=== PATIENT | male | born 1970 | race Two or more races ===

== ENCOUNTER 2021-10-05 16:49 | Inpatient (IN) | payer OTHER ==
[2021-10-05 18:03] VITALS: BMI 26.9
[2021-10-05] MEDS ORDERED: MAGNESIUM CITRATE 300 ML BOTTLE PO PRN (20:17)
[2021-10-05] MEDS ORDERED: NICOTINE 10 MG CARTRIDGE (INHALER) IH PRN (20:17)
[2021-10-05] MEDS ORDERED: NALOXONE (NARCAN) HCL 4 MG/0.1 ML SPRAY NS PRN (20:17)
[2021-10-05] MEDS ORDERED: MENTHOL/PHENOL 1 EACH UD MM PRN (20:17)
[2021-10-05] MEDS ORDERED: P-EPHED 60MG/TRIPROLIDI 2.5MG TABLET PO PRN (20:17)
[2021-10-05] MEDS ORDERED: IBUPROFEN 400 MG TABLET (FP) PO PRN (20:17)
[2021-10-05] MEDS ORDERED: METHOCARBAMOL 500 MG TABLET PO PRN (20:17)
[2021-10-05] MEDS ORDERED: MAG HYDROX/AL HYDROX/SIMETH 30 ML UNIT-DOSE CUP PO PRN (20:17)
[2021-10-05] MEDS ORDERED: NALOXONE HCL 0.4 MG/ML VIAL IM PRN (20:17)
[2021-10-05] MEDS ORDERED: ACETAMINOPHEN 325 MG TABLET (FP) PO PRN ×2 (20:17)
[2021-10-05] MEDS ORDERED: BISMUTH SUBSALICYLATE 524 MG/30 ML PO PRN (20:17)
[2021-10-05] MEDS ORDERED: DICYCLOMINE HCL 10 MG CAPSULE PO PRN (20:17)
[2021-10-05] MEDS ORDERED: MAGNESIUM HYDROX 2400MG/30ML ORAL SUSPENSION 30 ML CUP PO PRN (20:17)
[2021-10-05] MEDS ORDERED: guaiFENesin 200 MG/10 ML 10 ML UNIT-DOSE CUPS PO PRN (20:17)
[2021-10-05] MEDS: THIAMINE HCL 100 MG TABLET (FP) PO SCH (22:21)
[2021-10-05] MEDS: MELATONIN 5 MG TABLETS PO SCH (22:21)
[2021-10-06] MEDS ORDERED: methaDONE HCL 40 MG DISPERSABLE TABLET PO SCH (10:00)
[2021-10-06] MEDS ORDERED: methaDONE HCL 10 MG TABLET ONE (12:08)
[2021-10-06] MEDS ORDERED: methaDONE HCL 40 MG DISPERSABLE TABLET ONE (12:09)
[2021-10-06] MEDS: PRENATAL VITAMINS W/ FOLIC ACID TABLET (FP) PO SCH (12:11)
[2021-10-06] MEDS ORDERED: methaDONE 80 MG, methaDONE 20 MG PO ONE (12:15)
[2021-10-06] MEDS: NICOTINE 14 MG/24 HOURS TOPICAL PATCH TD SCH (12:16)
[2021-10-06] MEDS: THIAMINE HCL 100 MG TABLET (FP) PO SCH (22:47)
[2021-10-06] MEDS: MELATONIN 5 MG TABLETS PO SCH (22:47)
[2021-10-07] MEDS ORDERED: methaDONE HCL 40 MG DISPERSABLE TABLET ONE (04:18)
[2021-10-07] MEDS ORDERED: methaDONE HCL 10 MG TABLET ONE (04:18)
[2021-10-07] MEDS: methaDONE 80 MG, methaDONE 20 MG PO SCH (06:01)
[2021-10-07] MEDS: NICOTINE 14 MG/24 HOURS TOPICAL PATCH TD SCH (11:31)
[2021-10-07] MEDS: PRENATAL VITAMINS W/ FOLIC ACID TABLET (FP) PO SCH (11:31)
[2021-10-07 14:52] LABS: HEMATOCRIT 33.9 % (35.4-49); HEMOGLOBIN 11.9 GM/dL (11.7-16.9); MEAN CELL VOLUME 85.7 fl (80-96); MEAN PLT VOLUME 9.9 fl (7.5-11.1); PLATELET COUNT 130 10^3/uL (134-434); RBC 3.95 M/mm3 (4.00-5.60); RDW 13.4 % (11.9-15.9); WHITE BLOOD COUNT 4.8 K/mm3 (4.0-10.0)
[2021-10-07 15:06] LABS: BLOOD UREA NITROGEN 7.2 mg/dL (7-18); CALCIUM 8.7 mg/dL (8.5-10.1)
[2021-10-07 15:10] LABS: CREATININE 0.9 mg/dL (0.55-1.3)
[2021-10-07 15:11] LABS: BILIRUBIN,TOTAL 0.4 mg/dL (0.2-1); TOT PROT 6.4 g/dl (6.4-8.2)
[2021-10-07] MEDS: THIAMINE HCL 100 MG TABLET (FP) PO SCH (21:39)
[2021-10-07] MEDS: MELATONIN 5 MG TABLETS PO SCH (21:41)
[2021-10-08] MEDS ORDERED: methaDONE HCL 10 MG TABLET ONE (04:27)
[2021-10-08] MEDS ORDERED: methaDONE HCL 40 MG DISPERSABLE TABLET ONE (04:27)
[2021-10-08] MEDS: methaDONE 80 MG, methaDONE 20 MG PO SCH (06:24)
[2021-10-08] MEDS: PRENATAL VITAMINS W/ FOLIC ACID TABLET (FP) PO SCH (10:46)
[2021-10-08] MEDS: amLODIPine BESYLATE 10 MG TABLET (FP) PO SCH (10:47)
[2021-10-08] MEDS: NICOTINE 14 MG/24 HOURS TOPICAL PATCH TD SCH (10:47)
[2021-10-08] MEDS: MELATONIN 5 MG TABLETS PO SCH (22:45)
[2021-10-08] MEDS: THIAMINE HCL 100 MG TABLET (FP) PO SCH (22:45)
[2021-10-09] MEDS ORDERED: methaDONE HCL 10 MG TABLET ONE (04:43)
[2021-10-09] MEDS ORDERED: methaDONE HCL 40 MG DISPERSABLE TABLET ONE (04:44)
[2021-10-09] MEDS: methaDONE 80 MG, methaDONE 20 MG PO SCH (05:52)
[2021-10-09] MEDS: PRENATAL VITAMINS W/ FOLIC ACID TABLET (FP) PO SCH (09:59)
[2021-10-09] MEDS: amLODIPine BESYLATE 10 MG TABLET (FP) PO SCH (09:59)
[2021-10-09] MEDS: NICOTINE 14 MG/24 HOURS TOPICAL PATCH TD SCH (09:59)
[2021-10-09 13:25] VITALS: BP 101/64; PULSE 87; TEMP 95
== END 2021-10-09 14:53 | disposition home or self-care (01) | DRG 773 ==
LOC: YASAS 16:49 → Y6N 20:54 → UNDOADMIN 20:54 → Y6N 20:55
PROVIDERS: ADMIT Allergy & Immunology; ATTEND Allergy & Immunology
PROC: HZ2ZZZZ Detoxification Services for Substance Abuse Treatment (ICD-10-PCS; principal; 2021-10-05)
DX: F10.230 Alcohol dependence with withdrawal, uncomplicated (principal); F11.20 Opioid dependence, uncomplicated; F14.20 Cocaine dependence, uncomplicated; F13.20 Sedative, hypnotic or anxiolytic dependence, uncomplicated; F17.210 Nicotine dependence, cigarettes, uncomplicated; F19.24 Other psychoactive substance dependence with psychoactive substance-induced mood disorder; I10 Essential (primary) hypertension; Z62.810 Personal history of physical and sexual abuse in childhood; Z86.16 Personal history of COVID-19; Z20.2 Contact with and (suspected) exposure to infections with a predominantly sexual mode of transmission; Z59.00 Homelessness unspecified
CPT/HCPCS: 36415; 80053; 82962; 85027; 86593; 86780; 87811; 93005; 93010; C9803; U0003; U0005

== ENCOUNTER 2021-12-06 14:39 | Inpatient (IN) | payer OTHER ==
[2021-12-06] MEDS ORDERED: MENTHOL/PHENOL 1 EACH UD MM PRN (16:58)
[2021-12-06] MEDS ORDERED: BISMUTH SUBSALICYLATE 524 MG/30 ML PO PRN (16:58)
[2021-12-06] MEDS ORDERED: ONDANSETRON *ODT* 4 MG TABLET SL PRN (16:58)
[2021-12-06] MEDS ORDERED: METHOCARBAMOL 500 MG TABLET PO PRN (16:58)
[2021-12-06] MEDS ORDERED: ACETAMINOPHEN 325 MG TABLET (FP) PO PRN ×2 (16:58)
[2021-12-06] MEDS ORDERED: NICOTINE POLACRILEX 2 MG GUM BUC PRN (16:58)
[2021-12-06] MEDS ORDERED: MAGNESIUM HYDROX 2400MG/30ML ORAL SUSPENSION 30 ML CUP PO PRN (16:58)
[2021-12-06] MEDS ORDERED: IBUPROFEN 400 MG TABLET (FP) PO PRN (16:58)
[2021-12-06] MEDS ORDERED: MAGNESIUM CITRATE 300 ML BOTTLE PO PRN (16:58)
[2021-12-06] MEDS ORDERED: MAG HYDROX/AL HYDROX/SIMETH 30 ML UNIT-DOSE CUP PO PRN (16:58)
[2021-12-06] MEDS ORDERED: diazePAM 5 MG TABLET PO PRN (17:00)
[2021-12-06 22:40] VITALS: BMI 26.4
[2021-12-06] MEDS: MELATONIN 5 MG TABLETS PO SCH (23:01)
[2021-12-06] MEDS: THIAMINE HCL 100 MG TABLET (FP) PO SCH (23:01)
[2021-12-07] MEDS ORDERED: chlordiazePOXIDE HCL 25 MG CAPSULE PO PRN (10:04)
[2021-12-07] MEDS ORDERED: methaDONE HCL 10 MG TABLET PO SCH (10:15)
[2021-12-07] MEDS ORDERED: methaDONE HCL 40 MG DISPERSABLE TABLET ONE (10:39)
[2021-12-07] MEDS ORDERED: methaDONE HCL 10 MG TABLET ONE (10:39)
[2021-12-07] MEDS: methaDONE 80 MG, methaDONE 20 MG PO SCH (10:52)
[2021-12-07] MEDS: chlordiazePOXIDE HCL 25 MG CAPSULE PO SCH ×3 (10:52→23:07)
[2021-12-07] MEDS: PRENATAL VITAMINS W/ FOLIC ACID TABLET (FP) PO SCH (10:53)
[2021-12-07 11:15] LABS: HEMATOCRIT 38.8 % (35.4-49); HEMOGLOBIN 12.8 GM/dL (11.7-16.9); MCH 29.8 pg (25.7-33.7); MCHC 33.1 g/dl (32.0-35.9); MEAN CELL VOLUME 89.9 fl (80-96); PLATELET COUNT 133 10^3/uL (134-434); RBC 4.31 M/mm3 (4.00-5.60); RDW 14.6 % (11.9-15.9); WHITE BLOOD COUNT 3.9 K/mm3 (4.0-10.0)
[2021-12-07 11:45] LABS: CALCIUM 8.5 mg/dL (8.5-10.1)
[2021-12-07 11:46] LABS: ALBUMIN 3.2 g/dl (3.4-5.0); BLOOD UREA NITROGEN 8.9 mg/dL (7-18)
[2021-12-07 11:47] LABS: CREATININE 0.9 mg/dL (0.55-1.3)
[2021-12-07 11:48] LABS: BILIRUBIN,TOTAL 0.4 mg/dL (0.2-1)
[2021-12-07 11:49] LABS: TOT PROT 6.4 g/dl (6.4-8.2)
[2021-12-07] MEDS: MELATONIN 5 MG TABLETS PO SCH (23:08)
[2021-12-07] MEDS: THIAMINE HCL 100 MG TABLET (FP) PO SCH (23:08)
[2021-12-08] MEDS ORDERED: methaDONE HCL 40 MG DISPERSABLE TABLET ONE (04:03)
[2021-12-08] MEDS ORDERED: methaDONE HCL 10 MG TABLET ONE (04:03)
[2021-12-08] MEDS: chlordiazePOXIDE HCL 25 MG CAPSULE PO SCH ×4 (06:29→22:30)
[2021-12-08] MEDS: methaDONE 80 MG, methaDONE 20 MG PO SCH (06:29)
[2021-12-08] MEDS: PRENATAL VITAMINS W/ FOLIC ACID TABLET (FP) PO SCH (14:21)
[2021-12-08] MEDS: MELATONIN 5 MG TABLETS PO SCH (22:32)
[2021-12-08] MEDS: THIAMINE HCL 100 MG TABLET (FP) PO SCH (22:32)
[2021-12-09] MEDS ORDERED: methaDONE HCL 40 MG DISPERSABLE TABLET ONE (04:10)
[2021-12-09] MEDS ORDERED: methaDONE HCL 10 MG TABLET ONE (04:10)
[2021-12-09] MEDS: chlordiazePOXIDE HCL 25 MG CAPSULE PO SCH ×4 (04:49→22:00)
[2021-12-09] MEDS: methaDONE 80 MG, methaDONE 20 MG PO SCH (05:08)
[2021-12-09] MEDS: PRENATAL VITAMINS W/ FOLIC ACID TABLET (FP) PO SCH (10:58)
[2021-12-09] MEDS: THIAMINE HCL 100 MG TABLET (FP) PO SCH (22:01)
[2021-12-09] MEDS: MELATONIN 5 MG TABLETS PO SCH (22:01)
[2021-12-10] MEDS ORDERED: chlordiazePOXIDE HCL 10 MG CAPSULE PO PRN
[2021-12-10] MEDS ORDERED: methaDONE HCL 10 MG TABLET ONE (04:23)
[2021-12-10] MEDS ORDERED: methaDONE HCL 40 MG DISPERSABLE TABLET ONE (04:24)
[2021-12-10] MEDS: methaDONE 80 MG, methaDONE 20 MG PO SCH (06:09)
[2021-12-10] MEDS: chlordiazePOXIDE HCL 10 MG CAPSULE PO SCH ×4 (06:09→22:28)
[2021-12-10] MEDS: PRENATAL VITAMINS W/ FOLIC ACID TABLET (FP) PO SCH (10:11)
[2021-12-10] MEDS: hydrOXYzine PAMOATE 25 MG CAPSULE (FP) PO PRN (18:35)
[2021-12-10] MEDS: MELATONIN 5 MG TABLETS PO SCH (22:28)
[2021-12-10] MEDS: THIAMINE HCL 100 MG TABLET (FP) PO SCH (22:28)
[2021-12-11] MEDS ORDERED: methaDONE HCL 40 MG DISPERSABLE TABLET ONE (04:11)
[2021-12-11] MEDS ORDERED: methaDONE HCL 10 MG TABLET ONE (04:11)
[2021-12-11] MEDS: chlordiazePOXIDE HCL 10 MG CAPSULE PO SCH ×2 (06:51→17:43)
[2021-12-11] MEDS: methaDONE 80 MG, methaDONE 20 MG PO SCH (06:51)
[2021-12-11] MEDS: hydrOXYzine PAMOATE 25 MG CAPSULE (FP) PO PRN (10:53)
[2021-12-11] MEDS: amLODIPine BESYLATE 10 MG TABLET (FP) PO SCH (10:53)
[2021-12-11] MEDS: PRENATAL VITAMINS W/ FOLIC ACID TABLET (FP) PO SCH (10:53)
[2021-12-11] MEDS ORDERED: NICOTINE 10 MG CARTRIDGE (INHALER) IH PRN (11:16)
[2021-12-11] MEDS: MELATONIN 5 MG TABLETS PO SCH (22:15)
[2021-12-11] MEDS: THIAMINE HCL 100 MG TABLET (FP) PO SCH (22:15)
[2021-12-12] MEDS ORDERED: methaDONE HCL 10 MG TABLET ONE (04:16)
[2021-12-12] MEDS ORDERED: methaDONE HCL 40 MG DISPERSABLE TABLET ONE (04:16)
[2021-12-12] MEDS ORDERED: chlordiazePOXIDE HCL 10 MG CAPSULE PO ONE (05:00)
[2021-12-12] MEDS: methaDONE 80 MG, methaDONE 20 MG PO SCH (05:44)
[2021-12-12 08:54] VITALS: BP 150/79; PULSE 90; TEMP 97.3
[2021-12-12] MEDS: amLODIPine BESYLATE 10 MG TABLET (FP) PO SCH (10:17)
[2021-12-12] MEDS: PRENATAL VITAMINS W/ FOLIC ACID TABLET (FP) PO SCH (10:17)
== END 2021-12-12 10:42 | disposition home or self-care (01) | DRG 773 ==
LOC: YASAS 14:39 → Y3N 20:27 → UNDOADMIN 20:27
PROVIDERS: ADMIT Allergy & Immunology; ATTEND Allergy & Immunology
PROC: HZ2ZZZZ Detoxification Services for Substance Abuse Treatment (ICD-10-PCS; principal; 2021-12-06)
DX: F10.230 Alcohol dependence with withdrawal, uncomplicated (principal); F11.20 Opioid dependence, uncomplicated; F14.20 Cocaine dependence, uncomplicated; F17.210 Nicotine dependence, cigarettes, uncomplicated; I10 Essential (primary) hypertension; Z20.822 Contact with and (suspected) exposure to COVID-19; Z86.19 Personal history of other infectious and parasitic diseases; Z59.00 Homelessness unspecified
CPT/HCPCS: 36415; 80053; 85027; 86593; 86780; C9803-CS; U0003; U0005